=== PATIENT | female | born 1960 | race Caucasian/White ===

== ENCOUNTER 2017-01-21 08:23 | Outpatient (CLI) | payer OTHER ==
--- NOTE | 2017-02-01 16:26 | MMO ---
SCREENING MAMMOGRAPHY 01/21/17 COMPARISON: 06/25/13, 05/30/12, 05/27/11. HISTORY: Screening mammography. FINDINGS: The patient's mammogram is interpreted with the assistance of computer aided detection. Scattered fibroglandular densities are present. There is no dominant mass or architectural distortion. No concerning calcifications. IMPRESSION: BI-RADS 1: Negative Routine annual screening mammography (for women over age 40) POS: [facility]
== END 2017-01-21 08:24 | disposition home or self-care (01) ==
LOC: MAMMO 08:23
PROVIDERS: ATTEND Internal Medicine
DX: Z12.31 Encounter for screening mammogram for malignant neoplasm of breast (principal)
CPT/HCPCS: 77067; G0202

== ENCOUNTER 2018-02-08 12:01 | Outpatient (CLI) | payer OTHER | END 2018-02-08 12:02 | disposition home or self-care (01) | LOC: BICMAMMO 12:01 | PROVIDERS: ATTEND Internal Medicine | DX: Z12.31 Encounter for screening mammogram for malignant neoplasm of breast (principal); Z80.3 Family history of malignant neoplasm of breast | CPT/HCPCS: 77063; 77067 ==

== ENCOUNTER 2018-02-24 12:20 | Outpatient (CLI) | payer OTHER ==
[2018-02-24] MEDS ORDERED: Iopamidol 370 76% 100 ML VIAL ONE (13:31)
--- NOTE | 2018-02-24 14:55 | CT ---
ABDOMEN CT WITH CONTRAST: PELVIS CT WITH CONTRAST: HISTORY: Epigastric pain. Long history of GI issues. COMPARISON: None. FINDINGS: ABDOMEN: The lung bases are clear. Normal heart size. No pericardial effusion. The descending tho racic aorta and abdominal aorta have a normal caliber. No periaortic fat stranding. Intrahepatic and extrahepatic portal vein is patent. The liver, spleen, pancreas, and adrenal glands have appropriate enhancement. No gastrohepatic, retrocrural, or periportal lymphadenopathy. No mesenteric mass, lymphadenopathy, free air, or free fluid. Symmetric enhancement of the kidneys. Bilaterally, no obstructive uropathy. A 6 mm hypodensity in t he left kidney is too small to characterize, but is statistically favored to be a cyst. Limited eval uation of the alimentary canal due to lack of complete oral contrast opacification. The gastric muco sa, the duodenum, and multiple normal caliber small bowel loops are identified. No evidence of small bowel obstruction. The ileocecal junction is normal. Contrast and fecal material are noted through out the colon. A truncated, normal caliber appendix is identified. PELVIS: No mass, lymphadenopathy, free air, or free fluid. The urinary bladder is unremarkable. Th e uterus is unremarkable. There is evidence of clips along both fallopian tubes. No lytic or blastic lesions in the osseous structures. There are degenerative changes of the lumbosa cral junction. IMPRESSION: No acute abnormality in the abdomen or pelvis. POS: [facility]
== END 2018-02-24 12:21 | disposition home or self-care (01) ==
LOC: BICCT 12:20
PROVIDERS: ATTEND Internal Medicine
DX: R10.9 Unspecified abdominal pain (principal)
CPT/HCPCS: 36415; 74177; 80053; 80061; 82306; 83036; 84443; 85025

== ENCOUNTER 2018-03-08 07:39 | Outpatient (CLI) | payer OTHER ==
--- NOTE | 2018-03-08 09:19 | ULT ---
RIGHT UPPER QUADRANT ULTRASOUND: Date: 03-08-18 Comparison: None. History: Epigastric pain. Technique: Multiplanar grayscale sonographic imaging of the right upper quadrant provided. FINDINGS: The imaged pancreas is unremarkable. Distal body and tail are obscured by bowel gas. No focal liver l esion or intrahepatic biliary dilatation is seen. No gallbladder wall thickening or pericholecystic fluid. No gallstones are noted. 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 The common bile duct measures 3 mm, within normal limits. Right kidney measures approximately 8.2 x 5.2 x 3.3 cm. No renal mass, hydronephrosis, or renal stone noted. IMPRESSION: Unremarkable right upper quadrant ultrasound. POS: [facility]
== END 2018-03-08 07:40 | disposition home or self-care (01) ==
LOC: ULT 07:39
PROVIDERS: ATTEND Internal Medicine Gastroenterology
DX: R10.13 Epigastric pain (principal); K58.1 Irritable bowel syndrome with constipation; Z80.0 Family history of malignant neoplasm of digestive organs
CPT/HCPCS: 76705

== ENCOUNTER 2019-05-21 09:56 | Outpatient (CLI) | payer OTHER ==
--- NOTE | 2019-05-21 14:07 | MMO ---
Bilateral MAMMO Bilat Screen [facility]. CLINICAL HISTORY: Patient is 59 years old and is seen for screening. The patient has the following family history of breast cancer: great grandmother, malignant (generic), MATERNAL GREAT GM. The patient has no personal history of cancer. VIEWS: The views performed were: bilateral craniocaudal with tomosynthesis and bilateral mediolateral oblique with tomosynthesis. FILMS COMPARED: The present examination has been compared to prior imaging studies performed at [facility] on 05/30/2012, 06/25/2013, 01/21/2017 and 02/08/2018. This study has been interpreted with the assistance of computer-aided detection. MAMMOGRAM FINDINGS: There are scattered fibroglandular densities. There are no suspicious masses, suspicious calcifications, or new areas of architectural distortion. IMPRESSION: THERE IS NO MAMMOGRAPHIC EVIDENCE OF MALIGNANCY. A ROUTINE FOLLOW-UP MAMMOGRAM IN 1 YEAR IS RECOMMENDED. THE RESULTS OF THIS EXAM WERE SENT TO THE PATIENT. ACR BI-RADS Category 1 - Negative MAMMOGRAPHY NOTE: 1. A negative mammogram report should not delay a biopsy if a dominant of clinically suspicious mass is present. 2. Approximately 10% to 15% of breast cancers are not detected by mammography. 3. Adenosis and dense breasts may obscure an underlying neoplasm. Reported by: WILY RIGGINS MD Electonically Signed: [id number]
== END 2019-05-21 09:57 | disposition home or self-care (01) ==
LOC: BICMAMMO 09:56
PROVIDERS: ATTEND Internal Medicine
DX: Z12.31 Encounter for screening mammogram for malignant neoplasm of breast (principal); Z80.3 Family history of malignant neoplasm of breast
CPT/HCPCS: 77063; 77067

== ENCOUNTER 2020-06-18 16:21 | Outpatient (CLI) | payer OTHER | END 2020-06-18 16:22 | disposition home or self-care (01) | LOC: BICMAMMO 16:21 | PROVIDERS: ATTEND Internal Medicine | DX: Z12.31 Encounter for screening mammogram for malignant neoplasm of breast (principal); Z80.3 Family history of malignant neoplasm of breast | CPT/HCPCS: 77063; 77067 ==

== ENCOUNTER 2023-01-21 15:03 | Outpatient (CLI) | payer BC | END 2023-01-21 15:04 | disposition home or self-care (01) | LOC: BICMAMMO 15:03 | PROVIDERS: ATTEND Internal Medicine | DX: Z12.31 Encounter for screening mammogram for malignant neoplasm of breast (principal); M81.0 Age-related osteoporosis without current pathological fracture; M85.851 Other specified disorders of bone density and structure, right thigh; M85.852 Other specified disorders of bone density and structure, left thigh; Z80.3 Family history of malignant neoplasm of breast | CPT/HCPCS: 77063; 77067; 77080 ==

== ENCOUNTER 2023-07-26 09:04 | Outpatient (CLI) | payer BC | END 2023-07-26 09:05 | disposition home or self-care (01) | LOC: SCSRAD 09:04 | PROVIDERS: ATTEND Physician Assistant | DX: S89.92XA Unspecified injury of left lower leg, initial encounter (principal) ==